=== PATIENT | female | born 1975 | race African-American/Black ===

== ENCOUNTER 2019-04-11 18:45 | Emergency (ER) | payer OTHER ==
[2019-04-11 19:01] VITALS: BP 121/70; PULSE 65; TEMP 98.4; BMI 29.9
[2019-04-11] MEDS ORDERED: KETOROLAC TROMETHAMINE 60 MG/2 ML VIAL IM ONE (19:04)
--- NOTE | 2019-04-11 19:05 | PDOC ---
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
--- NOTE | 2019-04-11 19:46 | PDOC ---
History of Present Illness - General Chief Complaint: Chest Pain Stated Complaint: CHEST PAIN Time Seen by Provider: 04/11/19 18:57 - History of Present Illness Initial Comments: 04/11/19 19:42 43-year-old female without comorbidities presents for evaluation of chest pain 8 days. She states her pain hurts her when she lifts and moves. She started to self medicate with penicillin over the last 3 days without any indication of infection she said this medication makes her dizzy. Past History - Past Medical History COPD: No - Suicide/Smoking/Psychosocial Hx Smoking History: Never smoked Have you smoked in the past 12 months: No Information on smoking cessation initiated: No Hx Alcohol Use: No Drug/Substance Use Hx: No Review of Systems - Review of Systems Comments:: 04/11/19 19:44 HEAD: NC/AT EYES: Conjuntiva clear Ears: Canals and TM's normal NOSE: No d/c THROAT: Moist mucous membrances, oral pharanx clear, uvula midline NECK: Supple without adenopathy CARDIAC: S1 S2; Reproducible chest tenderness at the right and left costochondral junctions at ribs 3 and 4 LUNGS: CTA Full and Equal breath sounds ABDOMEN: Soft NT ND MS: Full ROM in all joints without edema NEUROLOGIC: No gross sensory or motor deficits, NVID SKIN: Normal color and temperature no lesions or rashes *Physical Exam - Vital Signs Last Vital Signs Temp Pulse Resp BP Pulse Ox 98.4 F 65 18 121/70 100 04/11/19 18:58 04/11/19 18:58 04/11/19 18:58 04/11/19 18:58 04/11/19 18:58 Medical Decision Making - Medical Decision Making 04/11/19 19:44 Very reproducible chest pain. I advised the patient to stop taking penicillin and her dizziness should resolve. Tylenol and Motrin for pain as directed. 04/11/19 19:45 EKG was reviewed and normal *DC/Admit/Observation/Transfer Diagnosis at time of Disposition: Chest wall discomfort, Costochondral chest pain - Discharge Dispostion Disposition: HOME Condition at time of disposition: Stable Decision to Admit order: No - Referrals Referrals: Gaurav Kowalski MD [Staff Physician] - - Patient Instructions Printed Discharge Instructions: Costochondritis, DI for Costochondritis Additional Instructions: Discontinue the use of penicillin. Please take Tylenol and Motrin as directed. Return to the emergency room for worsening symptoms. Follow-up with her primary care physician in one to 2 days without fail for further evaluation and treatment options. - Post Discharge Activity
[2019-04-11] MEDS ORDERED: KETOROLAC TROMETHAMINE 60 MG/2 ML VIAL ONE (19:49)
--- NOTE | 2019-04-12 10:15 | EKG ---
Test Reason : Blood Pressure : / mmHG Vent. Rate : 063 BPM Atrial Rate : 063 BPM P-R Int : 176 ms QRS Dur : 078 ms QT Int : 392 ms P-R-T Axes : 054 025 023 degrees QTc Int : 401 ms NORMAL SINUS RHYTHM POSSIBLE LEFT ATRIAL ENLARGEMENT SEPTAL INFARCT , AGE UNDETERMINED ABNORMAL ECG NO PREVIOUS ECGS AVAILABLE Confirmed by SHEMAR JOHNS MD ([id number]) on 04/12/2019 10:14:57 AM Referred By: Confirmed By:SHEMAR JOHNS MD
== END 2019-04-11 19:54 | disposition home or self-care (01) ==
LOC: JERFT 18:45
PROC: 3E0233Z Introduction of Anti-inflammatory into Muscle, Percutaneous Approach (ICD-10-PCS; principal; 2019-04-11)
DX: R07.89 Other chest pain (principal); M94.0 Chondrocostal junction syndrome [Tietze]
CPT/HCPCS: 93005; 93010; 99281-25